=== PATIENT | female | born 1950 | race African-American/Black ===

== ENCOUNTER → 2017-10-05 | Outpatient (CLI) | payer MEDICARE, MEDICAID | END | disposition home or self-care (01) | LOC: MAMMO 07:21 | PROVIDERS: ATTEND Specialist | DX: Z12.31 Encounter for screening mammogram for malignant neoplasm of breast (principal) | CPT/HCPCS: 77067 ==

== ENCOUNTER → 2019-06-13 | Outpatient (CLI) | payer MEDICARE, MEDICAID ==
[2019-06-13 11:40] LABS: BASOPHILS % 0.9 % (0.0-2.0); EOSINOPHILS % 3.7 % (0.0-5.0); HEMATOCRIT. 34.4 % (36.0-48.0); HEMOGLOBIN. 11.9 g/dL (12.0-16.0); LYMPHOCYTES % 43.8 % (20.0-50.0); MEAN CORPUSCULAR HEMOGLOBIN 33.2 pg (28.0-32.0); MEAN CORPUSCULAR VOLUME 95.9 fL (81.0-99.0); MEAN PLATELET VOLUME 7.9 fl (7.4-10.4); NEUTROPHILS % 46.6 % (40.0-76.0); PLATELET 320 x1000/uL (130-400); RED BLOOD CELL COUNT 3.59 mill/uL (4.2-5.4); RED CELL DISTRIBUTION WIDTH 12.4 % (11.6-14.6)
[2019-06-13 11:43] LABS: CLARITY URINE CLOUDY (CLEAR); COLOR URINE YELLOW (YELLOW); KETONES URINE TRACE (NEGATIVE); LEUKOCYTE ESTERASE URINE TRACE (NEGATIVE); NITRITE URINE NEGATIVE (NEGATIVE); OCCULT BLOOD URINE TRACE (NEGATIVE); PROTEIN URINE NEGATIVE (NEGATIVE); SPECIFIC GRAVITY URINE 1.025 (1.005-1.030)
[2019-06-13 11:49] LABS: CHLORIDE 105 mEq/L (98-107)
[2019-06-13 11:57] LABS: LDL CHOLESTEROL 95 mg/dL (5-100)
[2019-06-13 11:59] LABS: HDL CHOLESTEROL 81 mg/dL (40-59); T4 FREE 1.11 ng/dL (0.76-1.46)
== END | disposition home or self-care (01) ==
LOC: LAB 10:52
PROVIDERS: ATTEND Specialist
DX: I10 Essential (primary) hypertension (principal); E78.5 Hyperlipidemia, unspecified; E66.9 Obesity, unspecified
CPT/HCPCS: 36415; 80053; 80061; 81003; 82306; 83036; 84439; 84443; 85025

== ENCOUNTER 2021-03-03 17:47 | Inpatient (IN) | payer MEDICARE, MEDICAID ==
[~2021-03-03] VITALS: Ht 165.1 cm; Wt 98.5 kg
[2021-03-03] MEDS ORDERED: SODIUM CHLORIDE 0.9% 1,000 ML IV ONE (18:30)
[2021-03-03] MEDS ORDERED: AMIODARONE HCL 900 MG in DEXT 5% WATER 482 ML IV PRN (20:45)
[2021-03-03 22:03] LABS: HEMOGLOBIN. 10.2 g/dL (12.0-16.0); MEAN CORPUSCULAR HEMOGLOBIN 30.8 pg (28.0-32.0); MEAN CORPUSCULAR VOLUME 90.6 fL (81.0-99.0); MEAN PLATELET VOLUME 9.5 fl (7.4-10.4); PLATELET 409 x1000/uL (130-400); RED BLOOD CELL COUNT 3.31 mill/uL (4.2-5.4); RED CELL DISTRIBUTION WIDTH 13.7 % (11.6-14.6)
[2021-03-03 22:07] LABS: CHLORIDE 97 mEq/L (98-107)
[2021-03-03 22:11] LABS: ETHANOL BLOOD < 10 mg/dL
[2021-03-03] MEDS ORDERED: VANCOMYCIN 1 G PREMIX 200 ML IV ONE (22:45)
[2021-03-03] MEDS ORDERED: DEXTROSE 50% WATER 50ML SYRINGE IV ONE (22:45)
[2021-03-03 23:07] LABS: PLATELET ESTIMATE INCREASED
[2021-03-04] MEDS ORDERED: CEFEPIME 2,000 MG in DEXT 5% WATER 100 ML IV SCH
[2021-03-04 01:12] LABS: CLARITY URINE TURBID (CLEAR); COLOR URINE DARK YELLOW (YELLOW); KETONES URINE NEGATIVE (NEGATIVE); LEUKOCYTE ESTERASE URINE 3+ (NEGATIVE); NITRITE URINE NEGATIVE (NEGATIVE); OCCULT BLOOD URINE 1+ (NEGATIVE); PROTEIN URINE 2+ (NEGATIVE); SPECIFIC GRAVITY URINE 1.014 (1.005-1.030)
[2021-03-04 01:21] LABS: *BARBITURATES SCREEN URINE NEGATIVE (NEGATIVE); *BENZODIAZEPINES SCREEN URINE PRESUMTIVE POSITIVE (NEGATIVE); *COCAINE SCREEN URINE NEGATIVE (NEGATIVE); CANNABINOID URINE SCREEN NEGATIVE (NEGATIVE); METHADONE URINE SCREEN NEGATIVE (NEGATIVE); OPIATES URINE SCREEN PRESUMTIVE POSITIVE (NEGATIVE); PHENCYCLIDINE URINE SCREEN NEGATIVE (NEGATIVE)
[2021-03-04 01:22] LABS: *AMPHETAMINES SCREEN URINE NEGATIVE (NEGATIVE)
[2021-03-04 01:30] VITALS: BP 117/56
[2021-03-04 01:45] VITALS: BP 117/56
[2021-03-04] MEDS ORDERED: DICL100G31 TP (04:35)
[2021-03-04] MEDS ORDERED: CARV6.2548 PO (04:35)
[2021-03-04] MEDS ORDERED: ALBU18HF2 IH (04:35)
[2021-03-04] MEDS ORDERED: PRIL20 PO (04:35)
[2021-03-04] MEDS ORDERED: AMLO-79 PO (04:35)
[2021-03-04] MEDS ORDERED: FLUT1AER IH (04:35)
[2021-03-04] MEDS ORDERED: DIAZ10TA4 PO (04:35)
[2021-03-04] MEDS ORDERED: LORA10TA7 PO (04:37)
[2021-03-04] MEDS ORDERED: ONDANSETRON HCL 4MG/2ML INJ IV PRN (05:15)
[2021-03-04] MEDS ORDERED: DOCUSATE SODIUM 100MG CAPSULE PO PRN (05:15)
[2021-03-04] MEDS ORDERED: MAGNESIUM/ALUMINUM HYDROXIDE/SIMETHICONE 30ML UDC PO PRN (05:15)
[2021-03-04] MEDS ORDERED: CLONIDINE 0.1MG TABLET PO PRN (05:15)
[2021-03-04] MEDS ORDERED: KCL 10MEQ/50ML PREMIX 50 ML IV SCH (07:00)
[2021-03-04] MEDS ORDERED: LEVOFLOXACIN 500MG PREMIX 100 ML IV SCH (07:00)
[2021-03-04 08:00] VITALS: BP 101/50
[2021-03-04] MEDS: MULTIVITAMINS,THER W-MINERALS TABLET PO SCH (08:34)
[2021-03-04] MEDS: SODIUM CHLORIDE 0.45% 1,000 ML IV SCH ×2 (08:36→21:03)
[2021-03-04] MEDS: AMLODIPINE 10MG TABLET PO SCH (08:38)
[2021-03-04] MEDS: ACETAMINOPHEN 325MG TABLET PO PRN (09:34)
[2021-03-04] MEDS ORDERED: NALOXONE HCL 0.4MG/ML VIAL IV PRN (11:30)
[2021-03-04 11:58] LABS: HEMOGLOBIN. 10.1 g/dL (12.0-16.0); MEAN PLATELET VOLUME 9.6 fl (7.4-10.4); PLATELET 414 x1000/uL (130-400); RED BLOOD CELL COUNT 3.26 mill/uL (4.2-5.4); RED CELL DISTRIBUTION WIDTH 13.9 % (11.6-14.6)
[2021-03-04 12:00] VITALS: BP 108/52
[2021-03-04 12:01] LABS: CHLORIDE 96 mEq/L (98-107)
[2021-03-04 12:46] LABS: PLATELET ESTIMATE INCREASED
[2021-03-04] MEDS: ENOXAPARIN 40MG/0.4ML SYR SUBCUT SCH (12:55)
[2021-03-04] MEDS: HYDROCODONE/ACETAMINOPHEN 5/325MG TABLET PO PRN (12:55)
[2021-03-04 16:00] VITALS: BP 113/47
[2021-03-04 20:00] VITALS: BP 95/52
[2021-03-04] MEDS: ZINC OXIDE 20% OINT 30GM TOP SCH (21:08)
[2021-03-05] VITALS: BP 99/41
[2021-03-05] MEDS: HYDROCODONE/ACETAMINOPHEN 5/325MG TABLET PO PRN ×5 (03:25→16:25)
[2021-03-05 04:00] VITALS: BP 94/60
[2021-03-05 06:12] LABS: BASOPHILS % 0.2 % (0.0-2.0); EOSINOPHILS % 0.1 % (0.0-5.0); HEMATOCRIT. 27.9 % (36.0-48.0); HEMOGLOBIN. 9.4 g/dL (12.0-16.0); LYMPHOCYTES % 8.5 % (20.0-50.0); MEAN CORPUSCULAR HEMOGLOBIN 31.3 pg (28.0-32.0); MEAN PLATELET VOLUME 9.1 fl (7.4-10.4); MONOCYTES % 4.6 % (2.0-8.0); NEUTROPHILS % 86.6 % (40.0-76.0); PLATELET 412 x1000/uL (130-400); RED CELL DISTRIBUTION WIDTH 13.8 % (11.6-14.6)
[2021-03-05 06:24] LABS: CHLORIDE 96 mEq/L (98-107)
[2021-03-05 08:00] VITALS: BP 108/55
[2021-03-05] MEDS: AMLODIPINE 10MG TABLET PO SCH (09:00)
[2021-03-05] MEDS: MULTIVITAMINS,THER W-MINERALS TABLET PO SCH (09:41)
[2021-03-05] MEDS: ENOXAPARIN 40MG/0.4ML SYR SUBCUT SCH (09:41)
[2021-03-05] MEDS ORDERED: POTASSIUM CHLORIDE 20MEQ TABLET SR PO NR (11:00)
[2021-03-05 12:20] VITALS: BP 95/58
[2021-03-05 12:33] LABS: CREATINE KINASE 523 IU/L (26-192)
[2021-03-05] MEDS: SODIUM CHLORIDE 0.9% 1,000 ML IV SCH ×3 (12:51→23:31)
[2021-03-05] MEDS: ZINC OXIDE 20% OINT 30GM TOP SCH ×2 (14:29→21:57)
[2021-03-05] MEDS ORDERED: GENTAMICIN SULFATE 140 MG in SODIUM CHLORIDE 0.9% 100 ML IV NR (14:30)
[2021-03-05 16:00] VITALS: BP 94/52
[2021-03-05 20:00] VITALS: BP 101/62
[2021-03-05] MEDS: ZOLPIDEM TARTRATE 5MG TABLET PO PRN (21:59)
[2021-03-06] VITALS: BP 100/55
[2021-03-06 04:00] VITALS: BP 112/54
[2021-03-06 07:09] LABS: HEMATOCRIT. 28.2 % (36.0-48.0); HEMOGLOBIN. 9.7 g/dL (12.0-16.0); MEAN CORPUSCULAR HEMOGLOBIN 31.8 pg (28.0-32.0); MEAN CORPUSCULAR VOLUME 92.4 fL (81.0-99.0); MEAN PLATELET VOLUME 8.5 fl (7.4-10.4); PLATELET 447 x1000/uL (130-400); RED BLOOD CELL COUNT 3.05 mill/uL (4.2-5.4); RED CELL DISTRIBUTION WIDTH 14.1 % (11.6-14.6)
[2021-03-06 07:25] LABS: CHLORIDE 108 mEq/L (98-107)
[2021-03-06 07:51] LABS: GENTAMICIN RANDOM 3.9 ug/mL
[2021-03-06 08:00] VITALS: BP 115/59
[2021-03-06] MEDS ORDERED: LEVOFLOXACIN 250MG PREMIX 50 ML IV SCH (08:00)
[2021-03-06] MEDS: MULTIVITAMINS,THER W-MINERALS TABLET PO SCH (09:03)
[2021-03-06] MEDS: HYDROCODONE/ACETAMINOPHEN 5/325MG TABLET PO PRN ×2 (09:06→15:34)
[2021-03-06] MEDS: ENOXAPARIN 40MG/0.4ML SYR SUBCUT SCH (09:07)
[2021-03-06] MEDS: ZINC OXIDE 20% OINT 30GM TOP SCH ×2 (09:08→20:03)
[2021-03-06 12:00] VITALS: BP 100/45
[2021-03-06] MEDS: SODIUM CHLORIDE 0.9% 1,000 ML IV SCH ×2 (12:30→19:03)
[2021-03-06 16:00] VITALS: BP 123/61
[2021-03-06 20:00] VITALS: BP 121/58
[2021-03-06] MEDS: ZOLPIDEM TARTRATE 5MG TABLET PO PRN (20:02)
[2021-03-06] MEDS: ACETAMINOPHEN 325MG TABLET PO PRN (20:02)
[2021-03-06] MEDS ORDERED: LOPERAMIDE 2MG/15ML UDC PO PRN (20:45)
[2021-03-06] MEDS ORDERED: LOPERAMIDE HCL 1 MG/7.5 ML 240ML BOTTLE PO PRN (21:45)
[2021-03-06] MEDS: LOPERAMIDE 2MG/15ML UDC PO PRN (22:45)
[2021-03-06 23:50] LABS: PLATELET ESTIMATE INCREASED
[2021-03-07] VITALS: BP 125/71
[2021-03-07 04:00] VITALS: BP 124/77
[2021-03-07] MEDS: HYDROCODONE/ACETAMINOPHEN 5/325MG TABLET PO PRN ×3 (05:12→17:50)
[2021-03-07] MEDS: SODIUM CHLORIDE 0.9% 1,000 ML IV SCH ×3 (07:07→19:31)
[2021-03-07 08:00] VITALS: BP 117/58
[2021-03-07] MEDS: MULTIVITAMINS,THER W-MINERALS TABLET PO SCH (08:25)
[2021-03-07] MEDS: ENOXAPARIN 40MG/0.4ML SYR SUBCUT SCH (08:25)
[2021-03-07] MEDS: ZINC OXIDE 20% OINT 30GM TOP SCH ×2 (08:25→22:12)
[2021-03-07] MEDS: LOPERAMIDE 2MG/15ML UDC PO PRN (08:59)
[2021-03-07 12:00] VITALS: BP 142/84
[2021-03-07] MEDS ORDERED: GENTAMICIN 100MG PREMIX 50 ML IV NR (15:00)
[2021-03-07 16:00] VITALS: BP 126/68
[2021-03-07 20:00] VITALS: BP 113/62
[2021-03-08] VITALS: BP 155/73
[2021-03-08 04:00] VITALS: BP 144/74
[2021-03-08] MEDS: SODIUM CHLORIDE 0.9% 1,000 ML IV SCH ×2 (05:02→09:11)
[2021-03-08] MEDS: HYDROCODONE/ACETAMINOPHEN 5/325MG TABLET PO PRN ×2 (05:52→15:15)
[2021-03-08 06:15] LABS: BASOPHILS % 0.5 % (0.0-2.0); EOSINOPHILS % 1.3 % (0.0-5.0); HEMATOCRIT. 28.3 % (36.0-48.0); HEMOGLOBIN. 9.5 g/dL (12.0-16.0); LYMPHOCYTES % 10.7 % (20.0-50.0); MEAN CORPUSCULAR HEMOGLOBIN 31.6 pg (28.0-32.0); MEAN CORPUSCULAR VOLUME 93.9 fL (81.0-99.0); MONOCYTES % 7.8 % (2.0-8.0); NEUTROPHILS % 79.7 % (40.0-76.0); PLATELET 498 x1000/uL (130-400); RED BLOOD CELL COUNT 3.01 mill/uL (4.2-5.4); RED CELL DISTRIBUTION WIDTH 14.4 % (11.6-14.6)
[2021-03-08 07:45] LABS: CHLORIDE 116 mEq/L (98-107)
[2021-03-08 08:00] VITALS: BP 126/70
[2021-03-08] MEDS: MULTIVITAMINS,THER W-MINERALS TABLET PO SCH ×2 (09:00→09:10)
[2021-03-08] MEDS: ENOXAPARIN 40MG/0.4ML SYR SUBCUT SCH (09:10)
[2021-03-08] MEDS: ZINC OXIDE 20% OINT 30GM TOP SCH (09:10)
[2021-03-08 10:06] LABS: ANTI-NUCLEAR ANTIBODIES DIRECT Negative (Negative)
[2021-03-08 12:00] VITALS: BP 147/82
[2021-03-08] MEDS ORDERED: GENTAMICIN 100MG PREMIX 50 ML IV SCH (12:00)
[2021-03-08 12:12] VITALS: BP 147/82
[2021-03-08 15:15] VITALS: BP 147/82
[2021-03-08] MEDS ORDERED: ENOXAPARIN 30MG/0.3ML SYR SUBCUT SCH (21:00)
== END 2021-03-08 16:10 | disposition home health service (06) | DRG 871 ==
LOC: ER 17:47 → EDBEDREQTM 22:48 → EDBEDREQ 22:48 → ENRESERV 23:21 → 7EST 03-04 01:46
PROVIDERS: ADMIT Hospitalist; ATTEND Hospitalist
DX: A41.51 Sepsis due to Escherichia coli [E. coli] (principal); E43 Unspecified severe protein-calorie malnutrition; E87.1 Hypo-osmolality and hyponatremia; N17.9 Acute kidney failure, unspecified; N39.0 Urinary tract infection, site not specified; E86.9 Volume depletion, unspecified; E87.6 Hypokalemia; J45.909 Unspecified asthma, uncomplicated; I12.9 Hypertensive chronic kidney disease with stage 1 through stage 4 chronic kidney disease, or unspecified chronic kidney disease; N18.9 Chronic kidney disease, unspecified; R74.01 Elevation of levels of liver transaminase levels; Z88.0 Allergy status to penicillin; Z82.49 Family history of ischemic heart disease and other diseases of the circulatory system; Z88.8 Allergy status to other drugs, medicaments and biological substances; Z68.36 Body mass index [BMI] 36.0-36.9, adult
CPT/HCPCS: 36415; 71045; 76770; 80048; 80053; 80170; 80305; 80320; 81003; 82140; 82550; 82962; 83605; 83735; 83880; 84484; 85025; 86038; 86160; 87077; 87186; 87493; 93005; 93970; 97162; 99285; J0692; J1580; J1650; J1956; J3370; J3480; J7030; J7050; J7060; A4315; G0480